=== PATIENT | female | born 1990 | race Caucasian/White ===

== ENCOUNTER 2017-09-08 20:28 | Emergency (ER) | payer MEDICAID ==
--- NOTE | 2017-09-08 20:45 | EDPHY ---
H & P Time Seen by Provider: 09/08/17 20:38 HPI/ROS: This patient complains of a 6 day history of sore throat right-sided achy with tonsillar swelling on the right when she looks the mere. Her pain is 5/10 intensity baseline with slight improvement from [id number] analgesics although she has had none today. She also complains of right-sided ear pain also 5/10 intensity with mild left ear discomfort. Same duration for the ear pain. She came here by private vehicle for evaluation of her symptoms and denies any other associated symptoms except occasional cough she feels is triggered from her sore throat. ROS: Constitutional: No high fevers or chills. No fatigue. HEENT: No nasal congestion. No drainage from the ear change in her hearing. No dysphonia. Pulmonary: No shortness of breath. No pleuritic pain GI: No nausea vomiting Integumentary: No skin rash 5 point ROS is otherwise negative Past Medical/Surgical History: Moderately obese. Otherwise healthy. Smoking Status: Never smoked Physical Exam: Physical Exam Vital signs are normal. General: No acute distress HEENT: Nose: Clear bilaterally. No sinus tenderness to percussion. Ears: External canals and tympanic membranes are clear with no erythema or abnormal findings bilaterally. Oropharynx: Mild right tonsillar swelling. No significant erythema or exudates are appreciated. No dysphonia. Eyes: Pupils equal and react to light. Extraocular motions are intact. Neck: Supple with no meningismus. No lymphadenopathy Lungs: Clear to auscultation bilaterally with no rales, rhonchi or wheeze. No respiratory distress. Cardiac: Regular rate and rhythm with no murmur gallop or rub Skin: No rash or pallor. Neuro: Alert with no focal deficits noted. Initial differential diagnosis: Viral pharyngitis with serous otitis, strep pharyngitis with serous otitis. Constitutional: Initial Vital Signs Temperature (C) 36.5 C 09/08/17 20:36 Heart Rate 87 09/08/17 20:36 Respiratory Rate 18 09/08/17 20:36 Blood Pressure 135/91 H 09/08/17 20:36 O2 Sat (%) 100 09/08/17 20:36 O2 Delivery Mode Room Air Allergies/Adverse Reactions: No Known Allergies Allergy (Unverified 09/08/17 20:36) Home Medications: Medication Instructions Recorded Fluticasone Nasal [Flonase Nasal 2 sprays NASAL DAILY #1 mdi 09/08/17 [place]] MDM/Departure - MDM Diagnostics: Rapid strep is negative. ED Course/Re-evaluation: I counseled this patient regarding viral pharyngitis and serous otitis. Will start her on Flonase steroid nasal spray ibuprofen. - Depart Disposition: Home, Routine, Self-Care Clinical Impression: Viral pharyngitis Serous otitis media Qualifiers: Chronicity: acute Laterality: right Recurrence: not specified as recurrent Qualified Code(s): H65.01 - Acute serous otitis media, right ear Condition: Good Instructions: Serous Otitis Media (ED), Pharyngitis (ED) Additional Instructions: Diagnoses: 1. Viral pharyngitis 2. Serous otitis Plan: Humidifier Ibuprofen and Tylenol for pain and swelling Flonase steroid nasal spray in addition as prescribed Return for any significant worsening despite treatment plan. Prescriptions: Fluticasone Nasal [Flonase Nasal [place]] 2 sprays NASAL DAILY #1 mdi Referrals: Chaz Lin DO [Primary Care Provider] - As per Instructions
[2017-09-08 21:37] VITALS: BP 128/84; PULSE 82; RESP 16; TEMP 97.9; O2SAT 96
== END 2017-09-08 21:37 | disposition home or self-care (01) ==
LOC: CED 20:28
DX: H65.01 Acute serous otitis media, right ear (principal); J02.8 Acute pharyngitis due to other specified organisms; B97.89 Other viral agents as the cause of diseases classified elsewhere
CPT/HCPCS: 87880-PO

== ENCOUNTER 2018-11-27 09:07 | Emergency (ER) | payer MEDICAID ==
[2018-11-27] MEDS ORDERED: ONDANSETRON 4 MG/2 ML VIAL IVP ONE (09:22)
[2018-11-27] MEDS ORDERED: NS 1,000 ML IV ONE (09:22)
--- NOTE | 2018-11-27 09:30 | EDPHY ---
H & P Time Seen by Provider: 11/27/18 09:21 HPI/ROS: HPI Lower abdominal pain. 28-year-old female by private vehicle with her mother. This patient reports that she has had intermittent right lower quadrant abdominal pain described as sharp and cramping for the last week. She reports that this morning the pain has been more constant and worse. She has not had any nausea or vomiting. Denies diarrhea. No bloody or melenic stool. No prior abdominal surgical history. Last menstruation was about a month ago. Her last meal was last night. She states that she has had nothing to eat this morning. ROS: Constitutional: No fever, no chills. No weakness. Eyes: No discharge. No changes in vision. ENT: No sore throat. No nasal congestion or rhinorrhea. Respiratory: No cough. No shortness of breath. Cardiac: No chest pain, no palpitations. Gastrointestinal: As above, no vomiting, no diarrhea. Genitourinary: No hematuria. No dysuria or increased frequency with urination. No vaginal bleeding or vaginal discharge. Musculoskeletal: No back pain. No neck pain. No myalgias or arthralgias. Skin: No rashes. Neurological: No headache. No focal weakness or altered sensation. Past medical history: Tonsillectomy. Social history: Nonsmoker. Here with her mother. No alcohol. She is not sexually active. Physical Exam: General Appearance: Alert, she is not in distress. This patient is responding to questions appropriately and in full sentences. This patient appears well- hydrated and well-nourished. Eyes: Pupils equal and round no pallor or injection. No lid edema, erythema or injection. Respiratory: There are no retractions, lungs are clear to auscultation with good air movement bilaterally. Cardiovascular: Regular rate and rhythm. No murmur. Gastrointestinal: Abdomen is soft with vague, mild to moderate right lower quadrant/adnexal tenderness on palpation, no masses, bowel sounds normal. No focal tenderness at McBurney's point. No Li sign. Neurological: Motor sensory function is grossly intact. Cranial nerves are normal. Gait is normal. Skin: Warm and dry, no rashes. Musculoskeletal: Neck is supple and nontender. Extremities are symmetrical. All joints range without pain or impingement. Psychiatric: No agitation. No depression. Database: EKG: Imaging: CT abdomen and pelvis with IV contrast: The appendix is well visualized and is normal. She has small of mount of free fluid noted on the right side. This may indicate she has had a ruptured ovarian cyst. Spleen was slightly enlarged. This study was otherwise unremarkable. Results were discussed with staff radiologist Dr. Yohannes Haque. Pelvic ultrasound: The above-noted free fluid is not seen on ultrasound. The right ovary was seen well and is normal. There is no evidence of torsion. Exam was limited as noted below. Results were discussed with staff radiologist Dr. Kailash Langston. Procedures: Emergency department course: Triage vital signs reviewed and are normal. IV was placed. She was started on IV normal saline with 1 L to be given over the next hour. She currently declines antiemetics and pain medications. She will be given IV hydromorphone as well as IV Zofran as needed for pain and nausea. CT imaging of her abdomen and pelvis to be obtained to evaluate for appendicitis. Patient endorses workup. 10:30 a.m., the patient was re-evaluated, results of CT imaging and blood work as well as urinalysis discussed with the patient and mother. I discussed obtaining a pelvic ultrasound to better evaluate her pelvic anatomy. She and her mother in agreement. 11:15 a.m., the patient was re-evaluated. She did not tolerate the pelvic ultrasound, vaginal portion of the exam, secondary to vaginal discomfort. She is not sexually active and states that she has never been sexually active. 11:35 a.m., the patient was re-evaluated, she is resting comfortably at this time. Repeat abdominal exam she is soft, nontender nondistended. Results of her ultrasound were reviewed with her and her mother. She feels comfortable going home with her mother at this time. I discussed follow-up through her primary care physician or returning to the emergency department tomorrow morning for follow-up and repeat abdominal exam. Immediate return to emergency department precautions were reviewed with her and her mother. All of their questions were answered. She was discharged in good condition with her mother. Differential Diagnosis: The differential diagnosis on this patient includes but is not limited to constipation, ovarian cyst. Urinary tract infection, appendicitis, ovarian torsion, ectopic , colitis unlikely. This represents a partial list of diagnoses considered. These considerations are based on history, physical exam, past history, reassessment and diagnostic testing. Smoking Status: Never smoked Constitutional: Initial Vital Signs Temperature (C) 36.9 C 11/27/18 09:14 Heart Rate 93 11/27/18 09:14 Respiratory Rate 16 11/27/18 09:14 Blood Pressure 117/83 H 11/27/18 09:14 O2 Sat (%) 98 11/27/18 09:14 O2 Delivery Mode Room Air Allergies/Adverse Reactions: Pertussis Vaccines Allergy (Verified 11/27/18 09:14) Pt reports fever Home Medications: Medication Instructions Recorded NK [No Known Home Meds] 11/27/18 Medical Decision Making - Diagnostics Imaging Results: Imaging Impressions Abdomen CT 11/27/18 10:02 Impression: 1. Normal CT appearance of the appendix. 2. Trace amount of free fluid in the posterior pelvis, which is a nonspecific finding. Could the patient have recently ruptured a small ovarian cyst? 3. Mild splenomegaly. Findings were discussed with Adrianna Belcher MD at 10:44, on 11/27/2018. - Data Points Laboratory Results: 11/27/18 09:45 POC Sodium 141 mEq/L mEq/L (135-145) POC Potassium 4.0 mEq/L mEq/L (3.3-5.0) POC Chloride 108.0 mEq/L mEq/L (97-110) POC Total CO2 29 mEq/L mEq/L (22-31) POC BUN 7 mg/dL mg/dL (7-23) POC Creatinine 0.9 mg/dL mg/dL (0.6-1.0) POC Glucose 107 mg/dL H mg/dL (70-100) POC Calcium 9.7 mg/dL mg/dL (8.5-10.4) POC Total Bilirubin 0.5 mg/dL mg/dL (0.1-1.4) POC AST 21 IU/L IU/L (14-46) POC ALT 23 IU/L IU/L (9-52) POC Alk Phosphatase 88 IU/L IU/L (38-126) POC Total Protein 7.7 g/dL g/dL (6.3-8.2) POC Albumin 3.9 g/dL g/dL (3.5-5.0) Medications Given: Discontinued Medications Sodium Chloride (Ns) 1,000 mls @ 0 mls/hr IV EDNOW ONE; Wide Open PRN Reason: Protocol Stop: 11/27/18 09:23 Last Admin: 11/27/18 09:44 Dose: 1,000 mls Ondansetron HCl (Zofran) 4 mg IVP EDNOW ONE Stop: 11/27/18 09:23 Last Admin: 11/27/18 10:24 Dose: Not Given Point of Care Test Results: CBC CBC Collection Date 11/27/18 CBC Collection Time 09:40 WBC 7.99 RBC 5.46 HGB 13.7 HCT 42.5 PLT 309 Neut # 5.84 Neut 73.1 LYMPH # 1.57 LYMPH 19.6 MCV 77.8 Chemistry 11/27/18 09:45 POC Sodium 141 mEq/L mEq/L (135-145) POC Potassium 4.0 mEq/L mEq/L (3.3-5.0) POC Chloride 108.0 mEq/L mEq/L (97-110) POC Total CO2 29 mEq/L mEq/L (22-31) POC BUN 7 mg/dL mg/dL (7-23) POC Creatinine 0.9 mg/dL mg/dL (0.6-1.0) POC Glucose 107 mg/dL H mg/dL (70-100) POC Calcium 9.7 mg/dL mg/dL (8.5-10.4) POC Total Bilirubin 0.5 mg/dL mg/dL (0.1-1.4) POC AST 21 IU/L IU/L (14-46) POC ALT 23 IU/L IU/L (9-52) POC Alk Phosphatase 88 IU/L IU/L (38-126) POC Total Protein 7.7 g/dL g/dL (6.3-8.2) POC Albumin 3.9 g/dL g/dL (3.5-5.0) Urine Collection Date 11/27/18 Collection Time 09:42 HCG Results Negative Urine Dip Collection Date 11/27/18 Collection Time 09:42 Specific [place] (1.002-1.030) 1.005 PH (5.0-7.5) 5.5 Leukocytes (Negative) Negative Nitrites (Negative) Negative Protein (Negative) Negative Glucose (Negative) Negative Ketones (Negative) Negative Urobilnogen (0.2-1.0 EU) 0.2 Bilirubin (Negative) Negative Blood (Negative) 1+ Departure - Departure Disposition: Home, Routine, Self-Care Clinical Impression: Lower abdominal pain Condition: Good Instructions: Acute Abdominal Pain (ED) Additional Instructions: Read and follow provided instructions. Return to the emergency department tomorrow morning for re-evaluation or follow up with your primary care physician tomorrow morning for re-evaluation as discussed. Ibuprofen dosin mg every 6 hours with meals for the next 3 days only. Take only as needed for pain. Return to the emergency department immediately for worsening pain, fever, vomiting, bloody or dark stool or other serious concerns. Referrals: Chaz Lin DO [Primary Care Provider] - As per Instructions
[2018-11-27] MEDS ORDERED: IOPAMIDOL (ISOVUE-300) 100 ML BTL ONE (10:04)
[2018-11-27 11:56] VITALS: BP 122/84
== END 2018-11-27 11:38 | disposition home or self-care (01) ==
LOC: CED 09:07
DX: R10.30 Lower abdominal pain, unspecified (principal); E86.9 Volume depletion, unspecified
CPT/HCPCS: 74177-PO; 76856-PO; 80053-ER; 81025-ER; 85025-QW-ER; 96360-ER; 99285-ER; Q9967